=== PATIENT | female | born 1970 | race Caucasian/White ===

== ENCOUNTER → 2016-12-18 | Outpatient (CLI) | payer BC ==
[~2016-12-18] MED LIST: ALBU1AER9 INH; FEXO1TAB49 PO; SPIR50TA3 PO
--- NOTE | 2016-12-19 07:57 | MAMMOGRAPHY REPORT ---
BILATERAL DIGITAL SCREENING MAMMOGRAM TOMOSYNTHESIS WITH CAD: 12/18/2016 CLINICAL HISTORY: Routine screening. Patient has no complaints. TECHNIQUE: Breast tomosynthesis in addition to standard 2D mammography was performed. Current study was also evaluated with a Computer Aided Detection (CAD) system. COMPARISON: Comparison is made to exams dated: 12/13/2015 mammogram, 05/16/2015 mammogram, 04/26/2015 m ammogram, 04/26/2015 stereotactic biopsy, 04/13/2015 mammogram, and 04/01/2015 mammogram - [facility]. BREAST COMPOSITION: The tissue of both breasts is extremely dense, which lowers the sensitivity of m ammography. FINDINGS: There is a stable metallic biopsy marker in the upper inner left breast, and 2 stable group ings of benign-appearing microcode calcifications in the left breast, one of which was previously dem onstrated to be dermal in origin based on a tangential view. No new suspicious mass, architectural d istortion or cluster of microcalcifications is seen. IMPRESSION: ACR BI-RADS CATEGORY 1: NEGATIVE 1. Stable bilateral mammograms, without mammographic evidence of malignancy. A 1 year screening mamm ogram is recommended. 2. Biopsy of a clinically suspicious mass should not be precluded by negative imaging. The patient will receive written notification of the results. Approximately 10% of breast cancers are not detected with mammography. A negative mammographic report should not delay biopsy if a clinically suggestive mass is present. Heather Perry M.D. ay/:12/18/2016 16:49:00 Product Marketing Engineer: Jeanette REN(R)(M), [facility] letter sent: Normal 1/2 BI-RADS Code: ACR BI-RADS Category 1: Negative
== END | disposition home or self-care (01) ==
LOC: C.MAMM 10:56
PROVIDERS: ATTEND Family Medicine
DX: Z12.31 Encounter for screening mammogram for malignant neoplasm of breast (principal)

== ENCOUNTER → 2017-05-27 | Outpatient (CLI) | payer BC ==
--- NOTE | 2017-05-27 09:22 | DIAGNOSTIC IMAGING REPORT ---
ULTRASOUND RIGHT UPPER QUADRANT ABDOMEN CLINICAL HISTORY: Right sided abdominal pain. COMPARISON STUDY: Abdominal ultrasound dated 09/22/1714. TECHNIQUE: Real-time, grayscale, and color flow sonography of the right upper quadrant of the abdomen was performed. Images are reviewed in the transverse and longitudinal planes. FINDINGS: Liver: The liver is normal in size and echotexture. There is no intrahepatic biliary ductal dilatation. The main portal vein is patent. Gallbladder: The gallbladder is normal in appearance. No gallstones are identified. There is no gallbladder wall thickening or pericholecystic fluid. A sonographic Antony's sign is reportedly absent. The common bile duct measures up to 0.3 cm in diameter. Pancreas: Visualized portions of the pancreatic head and body are normal in appearance. Right kidney: Survey images of the right kidney demonstrate normal size and echotexture. There is no hydronephrosis. A 6 cm shadowing calculus is present in the interpolar region. Ascites: None. Right lower quadrant: No abnormality is identified at the right lower quadrant. The right ovary is normal as visualized noting small follicles. IMPRESSION: 1. No acute sonographic abnormality is identified in the right upper quadrant. No gallstones are seen. 2. There is a nonobstructing right renal calculus. 3. No abnormality is seen in the right lower quadrant at the indicated site of interest. Electronically signed by: Bridger Salcedo M.D. 05/27/2017 9:21 AM Dictated Date/Time: 05/27/2017 9:18 AM
== END | disposition home or self-care (01) ==
LOC: C.ULTR 08:18
PROVIDERS: ATTEND Family Medicine
DX: R10.31 Right lower quadrant pain (principal)

== ENCOUNTER → 2017-05-29 | Outpatient (CLI) | payer BC ==
--- NOTE | 2017-06-07 13:32 | CODING QUERY NO DIAGNOSIS ---
TREATMENT RENDERED WITHOUT A DIAGNOSIS : 74 To promote full compliance with coding requirements relating to patient care, physician participation is requested in all cases of production lapping machine operator uncertainty. Please assist us with providing a diagnosis/symptom for the test(s) below: A diagnosis/symptom was not documented on your Order. A valid diagnosis/symptom is required to bill all insurances. Please remember that we are unable to code a diagnosis of rule out, probable, possible, questionable, or suspected. Tests that require a diagnosis: DOS: 05/30/17 * URINE CULTURE CLEAN DIAGNOSIS: Provider Signature: Date: Thank you Archana Garcia Health Information Management Once completed, please kindly fax back to [phone] For questions please call [phone]
== END | disposition home or self-care (01) ==
LOC: C.LABSPEC 10:28
PROVIDERS: ATTEND Urology
DX: N20.0 Calculus of kidney (principal); R10.31 Right lower quadrant pain

== ENCOUNTER → 2017-06-05 | Outpatient (CLI) | payer BC ==
--- NOTE | 2017-06-05 11:22 | DIAGNOSTIC IMAGING REPORT ---
ABD/PELVIS ORAL CONT ONLY CLINICAL HISTORY: Nephrolithiasis. Right lower quadrant pain. COMPARISON STUDY: Abdominal ultrasound May 27, 2017 and pelvic ultrasound July 06, 2013. FINDINGS: Lung bases are clear. Unenhanced images of liver on the spleen, adrenal glands and pancreas are normal. A few punctate left renal calculi are noted. There are multiple right renal calculi which measure up to 9 mm. There is mild right pelvicalyceal dilatation without right hydroureter. The course of the right ureter is difficult to follow on this exam but pelvic calcifications likely reflect phleboliths. The appendix is normal. There is no evidence for a bowel obstruction. No abdominal or pelvic lymphadenopathy is present. Note is made of a 2.7 cm hypodensity along the right posterior lateral aspect of the uterus which likely reflects a hypodense lesion within the right ovary. This is suboptimally assessed on this unenhanced CT. There is no ascites. Mild right renal malrotation is noted. IMPRESSION: 1. Bilateral nephrolithiasis, including a 9 mm right renal calculus. Mild right pelvicalyceal dilatation without hydroureter. No ureteral calculus. 2. 2.7 cm hypodensity along the right posterior lateral aspect of the uterus which favors a hypodense right ovarian lesion which could reflect a hemorrhagic cyst or other ovarian lesion. A follow pelvic ultrasound is recommended. 3. Normal appendix. No bowel obstruction. Electronically signed by: Mathew Barnhart M.D. 06/05/2017 11:21 AM Dictated Date/Time: 06/05/2017 11:09 AM
== END | disposition home or self-care (01) ==
LOC: C.CTS 10:28
PROVIDERS: ATTEND Urology
DX: N20.0 Calculus of kidney (principal); R10.31 Right lower quadrant pain

== ENCOUNTER → 2017-07-03 | Outpatient (CLI) | payer BC ==
[~2017-07-03] MED LIST changes: +ALBU18002 INH; -ALBU1AER9 INH; +MULT-506 PO; +OMEG10007 PO; +VITAMIN D PO
--- NOTE | 2017-07-03 12:46 | DIAGNOSTIC IMAGING REPORT ---
CHEST 2 VIEWS ROUTINE HISTORY: 47 years-old Female N20.0 preoperative exam. No acute chest complaints COMPARISON: Chest radiograph 10/11/2015 TECHNIQUE: PA and lateral views of the chest FINDINGS: The cardiomediastinal and hilar silhouettes are within normal limits. There is no pneumothorax, pleural effusion, focal airspace consolidation or overt pulmonary edema. The bones of the chest appear to be grossly intact. IMPRESSION: No acute process. The above report was generated using voice recognition software. It may contain grammatical, syntax or spelling errors. Electronically signed by: Wero Allison M.D. 07/03/2017 12:45 PM Dictated Date/Time: 07/03/2017 12:44 PM
[2017-07-03 13:09] LABS: BASO % 0.4 %; BASO ABS # 0.03 K/uL (0-0.2); EOS % 1.3 %; EOS ABS # 0.09 K/uL (0-0.5); HEMATOCRIT 41.8 % (37-47); HEMOGLOBIN 14.8 g/dL (12.0-16.0); IG# 0.01 K/uL (0.00-0.02); LYMPH % 32.9 %; LYMPH ABS # 2.28 K/uL (1.2-3.4); MEAN CELL VOLUME 93.7 fL (80-100); MEAN CORPUSCULAR HEMOGLOBIN 33.2 pg (25-34); MEAN CORPUSCULAR HGB CONC 35.4 g/dl (32-36); MEAN PLATELET VOLUME 10.1 fL (7.4-10.4); MONO % 8.5 %; MONO ABS # 0.59 K/uL (0.11-0.59); NEUT % 56.8 %; NEUT ABS # 3.92 K/uL (1.4-6.5); PLATELET COUNT 281 K/uL (130-400); RED CELL DISTRIBUTION WIDTH CV 11.9 % (11.5-14.5); WHITE BLOOD COUNT 6.92 K/uL (4.8-10.8)
[2017-07-03 14:26] LABS: BLOOD UREA NITROGEN 12 mg/dl (7-18); CREATININE 1.04 mg/dl (0.60-1.20)
== END | disposition home or self-care (01) ==
LOC: C.RAD 11:28
PROVIDERS: ATTEND Urology
DX: N20.0 Calculus of kidney (principal)

== ENCOUNTER → 2017-07-18 | Outpatient (CLI) | payer BC ==
[~2017-07-18] MED LIST changes: +OXYC-57 PO
--- NOTE | 2017-07-18 18:58 | DIAGNOSTIC IMAGING REPORT ---
KUB HISTORY: Right-sided nephrolithiasis follow-up N20.0 NephrolithiasisTO BE DONE EITHER THE NIGHT BEFORE OR MORNI COMPARISON: CT abdomen and pelvis 06/05/2017 FINDINGS: The bowel gas pattern is non-obstructive. Gas-filled loops of nondilated bowel are seen throughout the abdomen There is no organomegaly. Calcifications of the pelvis suggest phleboliths. Renal shadows are obscured by bowel gas. 1.0 cm calcification projects over the right kidney, compatible with previously described calculus. No ureteral calculi identified. No pneumoperitoneum or pneumatosis. No fracture. IMPRESSION: Unchanged 10 mm calculus of the right kidney. No ureteral calculi identified. Electronically signed by: Wero Allison M.D. 07/18/2017 6:56 PM Dictated Date/Time: 07/18/2017 6:55 PM
== END | disposition home or self-care (01) ==
LOC: C.RAD 17:44
PROVIDERS: ATTEND Urology
DX: N20.0 Calculus of kidney (principal)

== ENCOUNTER → 2017-07-19 | Day surgery (SDC) | payer BC ==
[2017-07-01 13:04] VITALS: Ht 160 cm; Wt 65.9 kg
[~2017-07-19] VITALS: Ht 160 cm; Wt 65.9 kg
[~2017-07-19] MED LIST changes: +ATROPINE SULFATE 0.1 MG/ML 5ML SYR IV PRN; +CIPROFLOXACIN 400MG / D5W IV SCH; +DEXAMETHASONE SOD INJ 4 MG/ML VIAL ONE; +EpHEDrine SULFATE INJ 50 MG/ML AMP IV PRN; +FENTANYL CITRATE INJ 50 MCG/1 ML 2 ML VIAL IV PRN; +FENTANYL CITRATE INJ 50 MCG/1 ML 2 ML VIAL ONE; +LIDOCAINE HCL 2% 2 ML VIAL (20MG/ML) ONE; +MIDAZOLAM HCL 1 MG/ML 2ML VIAL ONE; +ONDANSETRON INJ 2 MG/ML 2 ML VIAL IV PRN; +ONDANSETRON INJ 2 MG/ML 2 ML VIAL ONE; +PROPOFOL IV EMULSION 10 MG/ML 20 ML VIAL IV ONE
--- NOTE | 2017-07-19 07:50 | History & Physical Bridge - SC ---
H&P Re-Evaluation Bridge Note: I have examined the patient, reviewed the History & Physical and in the interval since the performance of the History & Physical I have noted the following changes of clinical significance: No changes noted
[2017-07-19] MEDS: LACTATED RINGER'S 1000ML 1,000 ML IV SCH ×2 (07:51→07:56)
--- NOTE | 2017-07-19 08:37 | Discharge Instructions-SurgCtr ---
Discharge Instructions Date of Service Jul 19, 2017. Visit Reason for Visit: Stones Discharge Discharge Diagnosis / Problem: r renal stone Discharge Goals Goal(s): Decrease discomfort, Increase independence, Improve disease control Medications Stopped Medications Name(s): Pt. was told not to take a.m. meds today. Activity Recommendations Activity Limitations: per Instructions/Follow-up section (no driving) Anesthesia . Post Anesthesia Instructions: If you have had General Anesthesia or IV Sedation: * Do not drive today. * Resume driving when surgeon permits. * Do not make important decisions or sign legal documents today. * Call surgeon for: 1. Temperature elevations greater than 101 degrees F. 2. Uncontrollable pain. 3. Excessive bleeding. 4. Persistent nausea and vomiting. 5. Medication intolerance (nausea, vomiting or rash). * For nausea and vomiting use only clear liquids such as: tea, soda, bouillon until nausea subsides, then gradually increase diet as tolerated. * If you have any concerns or questions, call your surgeon's office. If physician is unavailable and it is an emergency, call 911 or go to the nearest emergency room. . Diet Recommendations Home Diet: resume previous diet Procedures Procedures Performed: Right Extracorporeal Shock Wave Lithotripsy Pending Studies Studies pending at discharge: no Medical Emergencies . Who to Call and When: Medical Emergencies: If at any time you feel your situation is an emergency, please call 911 immediately. . Non-Emergent Contact Non-Emergency issues call your: Urologist . . "Provider Documentation" section prepared by Greg Hanson. .
--- NOTE | 2017-07-19 08:45 | [facility] Post Operative Brief Note ---
Immediate Operative Summary Operative Date Jul 19, 2017. Pre-Operative Diagnosis Right Renal Calculi Post-Operative Diagnosis Same Procedure(s) Performed Right Extracorporeal Shock Wave Lithotripsy Surgeon Dr. Danii Hanson Tool Clerk Surgeon(s) None Estimated Blood Loss 0 Findings Consistent with Post-Op Diagnosis Specimens None Anesthesia Type General
[2017-07-19 09:33] VITALS: TEMP 36.5
--- NOTE | 2017-07-19 09:36 | Anesthesia Progress Nt - [facility] ---
Anesthesia Post Op Note Date & Time Jul 19, 2017 at 09:36 Vital Signs Pain Intensity: 0 Vital Signs Past 12 Hours Date Time Temp Pulse Resp B/P (MAP) Pulse Ox O2 Delivery O2 Flow Rate FiO2 07/19/17 09:23 36.5 07/19/17 09:22 52 14 07/19/17 09:22 53 14 97 07/19/17 09:21 106/62 (74) 07/19/17 09:17 67 13 96 07/19/17 09:17 60 13 07/19/17 09:16 94/66 (77) 07/19/17 09:12 50 13 07/19/17 09:12 50 13 95 07/19/17 09:11 96/68 (80) 07/19/17 09:07 48 13 07/19/17 09:07 48 13 98 07/19/17 09:06 95/57 (77) 07/19/17 09:02 47 15 07/19/17 09:02 46 15 99 07/19/17 09:01 100/65 (70) 07/19/17 09:00 Room Air 07/19/17 08:57 48 12 99 07/19/17 08:57 48 12 07/19/17 08:56 96/68 (83) 07/19/17 08:52 58 20 99 07/19/17 08:52 59 20 07/19/17 08:51 103/61 (70) 07/19/17 08:48 98/51 (79) 07/19/17 08:47 63 88 07/19/17 08:47 63 07/19/17 08:45 36.7 65 16 98/51 97 Diffusion Mask 4 07/19/17 07:36 36.8 60 16 107/72 (84) 97 Room Air Notes Mental Status: alert / awake / arousable, participated in evaluation Pt Amnestic to Procedure: Yes Nausea / Vomiting: adequately controlled Pain: adequately controlled Airway Patency, RR, SpO2: stable & adequate BP & HR: stable & adequate Hydration State: stable & adequate Anesthetic Complications: no major complications apparent
[2017-07-19 10:01] VITALS: BP 111/74; PULSE 68; O2SAT 99
== END | disposition home or self-care (01) ==
LOC: X.SURG 07:18
PROVIDERS: ATTEND Urology
DX: N20.0 Calculus of kidney (principal); Z85.828 Personal history of other malignant neoplasm of skin; Z87.891 Personal history of nicotine dependence; Z80.51 Family history of malignant neoplasm of kidney

== ENCOUNTER → 2017-08-06 | Outpatient (CLI) | payer BC ==
[~2017-08-06] MED LIST changes: -ATROPINE SULFATE 0.1 MG/ML 5ML SYR IV PRN; -CIPROFLOXACIN 400MG / D5W IV SCH; -DEXAMETHASONE SOD INJ 4 MG/ML VIAL ONE; -EpHEDrine SULFATE INJ 50 MG/ML AMP IV PRN; -FENTANYL CITRATE INJ 50 MCG/1 ML 2 ML VIAL IV PRN; -FENTANYL CITRATE INJ 50 MCG/1 ML 2 ML VIAL ONE; -LIDOCAINE HCL 2% 2 ML VIAL (20MG/ML) ONE; -MIDAZOLAM HCL 1 MG/ML 2ML VIAL ONE; -ONDANSETRON INJ 2 MG/ML 2 ML VIAL IV PRN; -ONDANSETRON INJ 2 MG/ML 2 ML VIAL ONE; -PROPOFOL IV EMULSION 10 MG/ML 20 ML VIAL IV ONE
--- NOTE | 2017-08-06 10:28 | DIAGNOSTIC IMAGING REPORT ---
KUB CLINICAL HISTORY: N20.0 nephrolithiasis COMPARISON STUDY: 07/18/2017 FINDINGS: Bowel gas and fecal material, largely obscured the renal shadows. There are faintly visualized right renal calcification suspicious for calculi. There is no pathologic bowel dilatation. Pelvic basin calcifications remain unchanged and are consistent with phleboliths. IMPRESSION: Poorly visualized right renal calculi. Electronically signed by: August Crouch M.D. 08/06/2017 10:27 AM Dictated Date/Time: 08/06/2017 10:26 AM
== END | disposition home or self-care (01) ==
LOC: C.RAD 09:51
PROVIDERS: ATTEND Urology
DX: N20.0 Calculus of kidney (principal)

== ENCOUNTER → 2017-12-12 | Outpatient (CLI) | payer BC ==
[~2017-12-12] MED LIST changes: -SPIR50TA3 PO; +SPIR50TA5 PO
--- NOTE | 2017-12-12 15:14 | MAMMOGRAPHY REPORT ---
BILATERAL DIGITAL DIAGNOSTIC MAMMOGRAM TOMOSYNTHESIS WITH CAD AND TARGETED RIGHT ULTRASOUND: 12/12/2017 CLINICAL HISTORY: The patient reports that her provider felt a palpable lump in the right medial [address] during a routine clinical exam. The patient cannot clearly feel the lump herself. The provider not e reports that the lump is located in the 3 o'clock position of the right breast, approximately 2 cm from the areola. TECHNIQUE: The study was acquired using full field digital technology and interpreted from soft copy. Breast tomosynthesis in addition to standard 2D mammography was performed. Current study was also ev aluated with a Computer Aided Detection (CAD) system. Bilateral CC and MLO 2D and tomosynthesis imag es were obtained. COMPARISON: Comparison is made to exams dated: 12/18/2016 mammogram, 12/13/2015 mammogram, 05/16/2015 ma mmogram, 04/26/2015 mammogram, 04/13/2015 mammogram, and 04/01/2015 mammogram - [facility]. BREAST COMPOSITION: The tissue of both breasts is extremely dense, which lowers the sensitivity of ma mmography. FINDINGS: There are no suspicious masses, calcifications, or areas of architectural distortion noted in either breast mammographically. There has been no significant interval change compared to prior exams. A b iopsy clip is again noted within the left upper inner quadrant from prior benign stereotactic biopsy. Bilateral benign-appearing calcifications are not significantly changed. Targeted ultrasound was performed at the area of the palpable lump reported by the ordering provider in the right 3:00 breast. Note that the patient cannot clearly pinpoint the location of the lump. N o suspicious masses or other suspicious sonographic abnormalities are evident. Incidentally noted du ring the exam were a few small anechoic benign cysts, including a 6 x 3 mm simple cyst in the right 2 :00 breast, 3 cm from the nipple, a 2 mm cyst in the right 2:00 periareolar breast, and a 3 mm cyst i n the right 2:00 breast, 2 cm from the nipple. IMPRESSION: ACR BI-RADS CATEGORY 2: BENIGN, ULTRASOUND ACR BI-RADS CATEGORY 2: BENIGN No suspicious mammographic or sonographic abnormality at the site of the palpable right 3:00 breast l ump reported by the ordering provider. there is no mammographic or sonographic evidence of malignancy . Recommend clinical follow-up for the palpable right breast lump, and recommend routine bilateral s creening mammograms in one year. The patient has been verbally notified of the results. Some breast cancers are not detected with mammography. A negative mammographic report should not dian y biopsy if a clinically suggestive mass is present. Amina Calix M.D. ah/:12/12/2017 09:38:57 Stitching Machine Feeder Or Offbearer: RT Tarun(Bang)(M), [facility] letter sent: Normal /2 OVERALL STUDY BIRADS: 2 Benign
== END | disposition home or self-care (01) ==
LOC: C.MAMM 09:10
PROVIDERS: ATTEND Physician Assistant
DX: N63.10 Unspecified lump in the right breast, unspecified quadrant (principal)

== ENCOUNTER → 2017-12-26 | Outpatient (CLI) | payer BC ==
--- NOTE | 2017-12-26 14:49 | DIAGNOSTIC IMAGING REPORT ---
SOFT TISS HEAD/NECK-THYROID CLINICAL HISTORY: 47 years-old Female with ENLARGED THYROID,DIFFICULTY SWALLOWING. Acute dysphasia with enlarged thyroid COMPARISON: None available TECHNIQUE: Multiple real time sonographic images of the thyroid were obtained accessing wood scale appearance and color doppler flow. FINDINGS: MEASUREMENTS: Right lobe: 5.6 x 1.6 x 1.7 cm Left lobe: 4.9 x 1.6 x 1.4 cm Isthmus: 0.3 cm PARENCHYMA: The thyroid parenchymal echotexture is mildly heterogeneous and hypervascular. NODULES: No discrete nodules are appreciated. IMPRESSION: Mildly heterogeneous and hypervascular thyroid parenchyma without discrete thyroid nodule identified. Thyroiditis is a differential consideration. Correlate with thyroid function tests. The above report was generated using voice recognition software. It may contain grammatical, syntax or spelling errors. Electronically signed by: Wero Allison M.D. 12/26/2017 2:48 PM Dictated Date/Time: 12/26/2017 2:46 PM
== END | disposition home or self-care (01) ==
LOC: C.ULTR 14:04
PROVIDERS: ATTEND Nurse Practitioner Family
DX: R13.10 Dysphagia, unspecified (principal); E04.9 Nontoxic goiter, unspecified